=== PATIENT | male | born 1990 | race African-American/Black ===

== ENCOUNTER 2020-04-09 14:52 | Observation (INO) | payer OTHER ==
--- NOTE | 2020-04-09 15:14 | ED ---
General Adult HPI - General Chief complaint: Chest Pain Stated complaint: Chest Pressure Time Seen by Provider: 04/09/20 14:59 Source: patient, RN notes reviewed Mode of arrival: ambulatory Limitations: no limitations - History of Present Illness Initial comments: 29-year-old male presents to the emergency room for a chief complaint of chest pain. Patient states he has had right-sided chest pain for the past 3 weeks. States it comes and goes. States it has been ongoing all day today. He describes it as a sharp pressure feeling. Patient states today he was painting inside of some numbness in his right shoulder so decided to come to the emergen cy room. He denies any associated shortness of breath. Denies diaphoresis or nausea vomiting. Patient denies symptoms worsening with exertion. States he seems to notice that low-sodium helps with this chest pain and high fat diet worsens his chest pain. Patient denies any other alleviating or aggravating factors. Patient denies any medical problems or cardiac history.Patient has no other complaints at this time including shortness of breath, abdominal pain, nausea or vomiting, headache, or visual changes. - Related Data Allergies Allergy/AdvReac Type Severity Reaction Status Date / Time No Known Allergies Allergy Verified 04/09/20 14:55 Review of Systems ROS Statement: Those systems with pertinent positive or pertinent negative responses have been documented in the HPI. ROS Other: All systems not noted in ROS Statement are negative. Past Medical History Past Medical History: No Reported History History of Any Multi-Drug Resistant Organisms: None Reported Past Surgical History: No Surgical Hx Reported Smoking Status: Never smoker Past Alcohol Use History: Occasional Past Drug Use History: Marijuana General Exam Limitations: no limitations General appearance: alert, in no apparent distress Head exam: Present: atraumatic Eye exam: Present: normal appearance, PERRL, EOMI. Absent: scleral icterus, conjunctival injection, periorbital swelling ENT exam: Present: normal exam, mucous membranes moist Neck exam: Present: normal inspection, full ROM. Absent: tenderness, meningismus, lymphadenopathy Respiratory exam: Present: normal lung sounds bilaterally, chest wall tenderness (Right sided anterior chest tenderness.). Absent: respiratory distress, wheezes, rales, rhonchi, stridor Cardiovascular Exam: Present: regular rate, normal rhythm, normal heart sounds. Absent: systolic murmur, diastolic murmur, rubs, gallop, clicks GI/Abdominal exam: Present: soft, normal bowel sounds. Absent: distended, tenderness, guarding, rebound, rigid Extremities exam: Present: other (Radial pulse 2+ and upper extremities bilaterally. Strength 5 out of 5 in upper extremities bilaterally.) Neurological exam: Present: alert Course Vital Signs 04/09/20 04/09/20 14:56 15:57 Temperature 98.7 F Pulse Rate 71 72 Respiratory 16 20 Rate Blood Pressure 147/90 128/85 O2 Sat by Pulse 97 100 Oximetry EKG Findings - EKG Comments: EKG Findings:: Normal sinus rhythm with sinus arrhythmia, ventricular rate 75, MO interval 174, QTC 406. Medical Decision Making - Medical Decision Making Vitals are stable however patient was found to be significantly hypoglycemic with a glucose of 45. Patient does not have a history of diabetes. Patient is not an alcoholic. Patient has not had any excessive workouts. At this point patient will be admitted for hypoglycemia of unknown origin. - Lab Data Result diagrams: 04/09/20 15:27 04/09/20 15:27 Lab Results 04/09/20 04/09/20 04/09/20 Range/Units 15:27 15:27 15:27 WBC 5.2 (3.8-10.6) k/uL RBC 5.37 (4.30-5.90) m/uL Hgb 15.2 (13.0-17.5) gm/dL Hct 47.0 (39.0-53.0) % MCV 87.6 (80.0-100.0) fL MCH 28.2 (25.0-35.0) pg MCHC 32.2 (31.0-37.0) g/dL RDW 12.4 (11.5-15.5) % Plt Count 327 (150-450) k/uL Neutrophils % 47 % Lymphocytes % 35 % Monocytes % 10 % Eosinophils % 4 % Basophils % 2 % Neutrophils # 2.5 (1.3-7.7) k/uL Lymphocytes # 1.8 (1.0-4.8) k/uL Monocytes # 0.5 (0-1.0) k/uL Eosinophils # 0.2 (0-0.7) k/uL Basophils # 0.1 (0-0.2) k/uL PT 10.3 (9.0-12.0) sec INR 1.0 (<1.2) APTT 23.7 (22.0-30.0) sec D-Dimer 0.31 (<0.60) mg/L FEU Sodium 138 (137-145) mmol/L Potassium 4.2 (3.5-5.1) mmol/L Chloride 102 (98-107) mmol/L Carbon Dioxide 30 (22-30) mmol/L Anion Gap 6 mmol/L BUN 14 (9-20) mg/dL Creatinine 1.16 (0.66-1.25) mg/dL Est GFR (CKD-EPI)AfAm >90 (>60 ml/min/1.73 sqM) Est GFR (CKD-EPI)NonAf 84 (>60 ml/min/1.73 sqM) Glucose 45 L* (74-99) mg/dL POC Glucose (mg/dL) (75-99) mg/dL POC Glu Roll Capper ID Calcium 9.8 (8.4-10.2) mg/dL Magnesium 2.2 (1.6-2.3) mg/dL Total Bilirubin 0.5 (0.2-1.3) mg/dL AST 51 (17-59) U/L ALT 29 (4-49) U/L Alkaline Phosphatase 62 (38-126) U/L Troponin I (0.000-0.034) ng/mL Total Protein 8.2 (6.3-8.2) g/dL Albumin 5.0 (3.5-5.0) g/dL Lipase 77 (23-300) U/L 04/09/20 04/09/20 Range/Units 15:27 17:23 WBC (3.8-10.6) k/uL RBC (4.30-5.90) m/uL Hgb (13.0-17.5) gm/dL Hct (39.0-53.0) % MCV (80.0-100.0) fL MCH (25.0-35.0) pg MCHC (31.0-37.0) g/dL RDW (11.5-15.5) % Plt Count (150-450) k/uL Neutrophils % % Lymphocytes % % Monocytes % % Eosinophils % % Basophils % % Neutrophils # (1.3-7.7) k/uL Lymphocytes # (1.0-4.8) k/uL Monocytes # (0-1.0) k/uL Eosinophils # (0-0.7) k/uL Basophils # (0-0.2) k/uL PT (9.0-12.0) sec INR (<1.2) APTT (22.0-30.0) sec D-Dimer (<0.60) mg/L FEU Sodium (137-145) mmol/L Potassium (3.5-5.1) mmol/L Chloride (98-107) mmol/L Carbon Dioxide (22-30) mmol/L Anion Gap mmol/L BUN (9-20) mg/dL Creatinine (0.66-1.25) mg/dL Est GFR (CKD-EPI)AfAm (>60 ml/min/1.73 sqM) Est GFR (CKD-EPI)NonAf (>60 ml/min/1.73 sqM) Glucose (74-99) mg/dL POC Glucose (mg/dL) 104 H (75-99) mg/dL POC Glu Roll Capper ID Julia Gomez Calcium (8.4-10.2) mg/dL Magnesium (1.6-2.3) mg/dL Total Bilirubin (0.2-1.3) mg/dL AST (17-59) U/L ALT (4-49) U/L Alkaline Phosphatase (38-126) U/L Troponin I <0.012 (0.000-0.034) ng/mL Total Protein (6.3-8.2) g/dL Albumin (3.5-5.0) g/dL Lipase (23-300) U/L Disposition Clinical Impression: Hypoglycemia, Chest pain Disposition: ADMITTED IP TO THIS HOSP Condition: Fair Is patient prescribed a controlled substance at d/c from ED?: No Referrals: None,Stated [Primary Care Provider] - 1-2 days Time of Disposition: 18:06
--- NOTE | 2020-04-09 16:20 | XR ---
EXAMINATION TYPE: XR chest 2V DATE OF EXAM: 04/09/2020 COMPARISON: NONE HISTORY: Chest pain TECHNIQUE: Frontal and lateral views of the chest are obtained on 3 images. FINDINGS: There is no focal air space opacity, pleural effusion, or pneumothorax seen. The cardiac silhouette size is within normal limits. There are overlying cardiac leads. The osseous structures a re intact. IMPRESSION: No acute cardiopulmonary process.
[2020-04-09 16:32] LABS: ALT 29 U/L (4-49); AST 51 U/L (17-59); African American GFR (CKD) >90 (>60 ml/min/1.73 sqM); Alkaline Phosphatase 62 U/L (38-126); Anion Gap 6 mmol/L; Blood Urea Nitrogen 14 mg/dL (9-20); Calcium 9.8 mg/dL (8.4-10.2); Carbon Dioxide 30 mmol/L (22-30); Chloride 102 mmol/L (98-107); Magnesium 2.2 mg/dL (1.6-2.3); Non-African American GFR(CKD) 84 (>60 ml/min/1.73 sqM); Potassium 4.2 mmol/L (3.5-5.1); Sodium 138 mmol/L (137-145); Total Bilirubin 0.5 mg/dL (0.2-1.3); Total Protein 8.2 g/dL (6.3-8.2)
[2020-04-09 16:34] LABS: D-Dimer 0.31 mg/L FEU (<0.60); Partial Thromboplastin Time 23.7 sec (22.0-30.0); Prothrombin Time 10.3 sec (9.0-12.0)
[2020-04-09 16:44] LABS: Basophils # (A) 0.1 k/uL (0-0.2); Basophils % (A) 2 %; Eosinophils # (A) 0.2 k/uL (0-0.7); Eosinophils % (A) 4 %; Glucose 45 mg/dL (74-99); HGB 15.2 gm/dL (13.0-17.5); Lymphocytes # (A) 1.8 k/uL (1.0-4.8); Lymphocytes % (A) 35 %; MCH 28.2 pg (25.0-35.0); MCHC 32.2 g/dL (31.0-37.0); MCV 87.6 fL (80.0-100.0); Mean Platelet Volume 7.3; Monocytes # (A) 0.5 k/uL (0-1.0); Monocytes % (A) 10 %; Neutrophils # (A) 2.5 k/uL (1.3-7.7); Neutrophils % (A) 47 %; Platelet Count 327 k/uL (150-450); RBC 5.37 m/uL (4.30-5.90); RDW 12.4 % (11.5-15.5); WBC 5.2 k/uL (3.8-10.6)
[2020-04-09 17:24] LABS: Glucose,Whole Blood 104 mg/dL (75-99)
[2020-04-09] MEDS ORDERED: NALOXONE 0.4 MG/ML 1 ML VIAL IV PRN (18:02)
[2020-04-09] MEDS ORDERED: DEXTROSE 50% SYRINGE 50 ML IVP PRN (18:04)
[2020-04-09] MEDS ORDERED: SODIUM CHLORIDE 0.9% 1,000 ML IV SCH (18:15)
[2020-04-09 19:36] LABS: Glucose,Whole Blood 83 mg/dL (75-99)
[2020-04-09 21:28] LABS: Glucose,Whole Blood 72 mg/dL (75-99)
[2020-04-10 01:14] LABS: Glucose,Whole Blood 85 mg/dL (75-99)
[2020-04-10 04:11] LABS: Glucose,Whole Blood 75 mg/dL (75-99)
[2020-04-10 04:14] VITALS: RESP 16
[2020-04-10 07:33] VITALS: BP 128/74; PULSE 62; TEMP 98.2
[2020-04-10 07:35] LABS: Glucose,Whole Blood 87 mg/dL (75-99)
--- NOTE | 2020-04-10 16:29 | P.HPIM ---
History of Present Illness Patient very pleasant 29-year-old male came in with complaints of his chest pain on the right or the chest. Patient has this pain for 3 weeks on and off. Patient has other areas with pain including to both hip areas. When I was ex amining patient was having pain on the left side of the chest as well as when he was taking the breath d-dimer was negative patient denied any shortness of breath lightheadedness or diaphoresis associated with pain. Patient doesn't have any risk factors patient doesn't have any significant family history of coronary artery disease patient is a very healthy 29-year-old male. Patient has pain and in the right arm as well as occasional numbness but this pain is not associated with his chest pain. Patient chest pain is atypical no risk factors patient will not need any further evaluation at 3 sets of troponins and EKGs all of which are within normal limits. Patient was actually admitted because of hypoglycemia. Which improved with the one dose of D50. Patient doesn't use any medications at home. Patient was asked to take small frequent meals patient was almost 12 hours from his last meals when he got this blood sugar checked which showed a blood sugar of 45. Patient doesn't have any pneumonia d-dimer was negative rule out pulmonary muscles Review of Systems REVIEW OF SYSTEMS: CONSTITUTIONAL: No fever, no malaise, no fatigue. HEENT: No recent visual problems or hearing problems. Denied any sore throat. CARDIOVASCULAR: No orthopnea, PND, no palpitations, no syncope. PULMONARY: No shortness of breath, no cough, no hemoptysis. GASTROINTESTINAL: No diarrhea, no nausea, no vomiting, no abdominal pain. NEUROLOGICAL: No headaches, no weakness, no numbness. HEMATOLOGICAL: Denies any bleeding or petechiae. GENITOURINARY: Denies any burning micturition, frequency, or urgency. MUSCULOSKELETAL/RHEUMATOLOGICAL: Denies any joint pain, swelling, or any muscle pain. ENDOCRINE: Denies any polyuria or polydipsia. The rest of the 14-point review of systems is negative. Past Medical History Past Medical History: No Reported History History of Any Multi-Drug Resistant Organisms: None Reported Past Surgical History: No Surgical Hx Reported Smoking Status: Never smoker Past Alcohol Use History: Occasional Past Drug Use History: Marijuana Medications and Allergies Home Medications Medication Instructions Recorded Confirmed Type Aspirin 81 mg PO BID 04/09/20 04/09/20 History Famotidine [Pepcid] 20 mg PO BID #30 tablet 04/10/20 Rx Ibuprofen [Motrin] 400 mg PO Q6HR PRN #30 tab 04/10/20 Rx Allergies Allergy/AdvReac Type Severity Reaction Status Date / Time No Known Allergies Allergy Verified 04/09/20 18:24 Physical Exam Vitals: Vital Signs Temp Pulse Pulse Resp BP BP Pulse Ox 04/10/20 07:30 98.2 F 62 16 128/74 99 04/10/20 02:46 97.8 F 67 16 117/67 100 04/09/20 19:35 98.7 F 69 20 129/80 100 04/09/20 19:00 69 20 129/80 100 04/09/20 18:19 97.7 F 59 L 16 147/83 100 04/09/20 18:00 72 20 100 04/09/20 17:00 70 20 130/81 100 Intake and Output 04/10/20 04/10/20 04/10/20 06:59 14:59 22:59 Other: # Voids 1 PHYSICAL EXAMINATION: GENERAL: The patient is alert and oriented x3, not in any acute distress. Well developed, well nourished. HEENT: Pupils are round and equally reacting to light. EOMI. No scleral icterus. No conjunctival pallor. Normocephalic, atraumatic. No pharyngeal erythema. No thyromegaly. CARDIOVASCULAR: S1 and S2 present. No murmurs, rubs, or gallops. PULMONARY: Chest is clear to auscultation, no wheezing or crackles. ABDOMEN: Soft, nontender, nondistended, normoactive bowel sounds. No palpable organomegaly. MUSCULOSKELETAL: No joint swelling or deformity. EXTREMITIES: No cyanosis, clubbing, or pedal edema. NEUROLOGICAL: Gross neurological examination did not reveal any focal deficits. SKIN: No rashes. Results CBC & Chem 7: 04/09/20 15:27 04/09/20 15:27 Labs: Abnormal Lab Results - Last 24 Hours (Table) 04/09/20 04/09/20 04/09/20 Range/Units 15:27 17:23 21:26 Glucose 45 L* (74-99) mg/dL POC Glucose (mg/dL) 104 H 72 L (75-99) mg/dL Thrombosis Risk Factor Assmnt - Choose All That Apply Any of the Below Risk Factors Present?: No Assessment and Plan Plan: -Chest pain atypical ruled out acute current symptoms no further enter mentioned or evaluation necessary patient will be discharged today chest pain is probably related to either pleurisy or musculoskeletal patient will be given prescription for nonsteroidal anti-inflammatory. -Hypoglycemia: Secondary to above-mentioned reasons patient was asked to use frequent meals. Patient will be discharged today
--- NOTE | 2020-04-10 16:29 | P.DS ---
Providers Date of admission: 04/09/20 17:54 Attending physician: Porsche Abad MD Primary care physician: Stated None Hospital Course: As mentioned in HPI Patient Condition at Discharge: Fair Plan - Discharge Summary Discharge Rx Participant: No New Discharge Prescriptions: New Ibuprofen [Motrin] 400 mg PO Q6HR PRN #30 tab PRN Reason: Pain Famotidine [Pepcid] 20 mg PO BID #30 tablet No Action Aspirin 81 mg PO BID Discharge Medication List Aspirin 81 mg PO BID 04/09/20 [History] Famotidine [Pepcid] 20 mg PO BID #30 tablet 04/10/20 [Rx] Ibuprofen [Motrin] 400 mg PO Q6HR PRN #30 tab 04/10/20 [Rx] Follow up Appointment(s)/Referral(s): None,Stated [Primary Care Provider] - 1-2 days Patient Instructions/Handouts: Costochondritis (DC), Non-diabetic Hypoglycemia (DC) Discharge Disposition: HOME SELF-CARE
== END 2020-04-10 12:45 | disposition home or self-care (01) ==
LOC: EC 14:52 → 1SOBS 17:54
PROVIDERS: ADMIT Internal Medicine; ATTEND Internal Medicine
DX: R07.89 Other chest pain (principal); R20.0 Anesthesia of skin; E16.2 Hypoglycemia, unspecified; M25.552 Pain in left hip; M25.551 Pain in right hip; M79.601 Pain in right arm; Z79.82 Long term (current) use of aspirin; Z79.1 Long term (current) use of non-steroidal anti-inflammatories (NSAID); Z79.899 Other long term (current) drug therapy
CPT/HCPCS: 99285; 36415; 93005; 85379; 80053; 83690; 83735; 84484; 85025; 85610; 85730; 71046; G0378 ×2